=== PATIENT | female | born 1940 | race Caucasian/White ===

== ENCOUNTER 2020-04-14 13:01 | Observation (INO) | payer MEDICARE ==
[~2020-04-14] VITALS: Ht 160 cm; Wt 44.5 kg
[2020-04-14 01:00] VITALS: BP 190/70
[~2020-04-14 13:01] MED LIST: ACTIQ 400 MCG400 MCG; ADULT LOW DOSE81 MG PO; ANALGESIC325 MG PO; B-6 PO; CALCIUM 500+D1 EAC2; CARVEDILOL3.125 MG PO; CARVEDILOL6.25 MG PO; CEFTIN500 MG PO; CIPROFLOXACIN500 M3; COREG PO; DARVOCET-N 1001 EACH PO; DILANTIN100 MG; HYDROCODON-ACE1 EAC7; KEPPRA 500 MG500 M1; KEPPRA 500 MG500 M2 PO; KEPPRA 500 MG500 MG PO; LEVAQUIN 500 M500 MG PO; LEVEMIR SQ; LEVEMIR SUBQ; LEVOTHROID25 MCG OR; LEVOTHROID75 MCG PO; LEVOTHYROXINE0.05 MG PO; LEVOXYL; MULTIVITAMINS; NOVOLOG100 UNIT/1 SQ; PERCOCET 5-3251 EACH PO; PHENYTOIN SODI100 MG PO; PLAVIX 75 MG TA75 MG PO; PYRIDOXINE HCL100 MG PO; SIMVASTATIN20 MG PO; SIMVASTATIN40 MG PO; SYNTHROID25 MCG PO; TIROSINT75 MCG PO; VIMPAT100 MG; ZESTRIL2.5 MG PO; phenytoin PO
[2020-04-14 13:04] VITALS: BP 179/65
[2020-04-14] MEDS ORDERED: ASA81BEC PO (13:17)
[2020-04-14 13:20] LABS: URINE BILIRUBIN NEGATIVE (Negative); URINE BLOOD NEGATIVE (Negative); URINE CLARITY CLEAR; URINE COLOR YELLOW; URINE GLUCOSE-RANDOM TRACE (Negative); URINE KETONES NEGATIVE (Negative); URINE LEUKOCYTES-REFLEX NEGATIVE (Negative); URINE NITRITE-REFLEX NEGATIVE (Negative); URINE PROTEIN TRACE (Negative)
[2020-04-14 13:33] LABS: ABSOLUTE LYMPHOCYTES 0.9 thou/uL (0.8-5.3); ABSOLUTE MONOCYTES 0.4 thou/uL (0.0-1.2); ABSOLUTE NEUTROPHILS 3.5 thou/uL (1.6-8.1); BASOPHILS 0.6 %; EOSINOPHILS 0.8 %; HEMATOCRIT 40.8 % (37.0-47.0); HEMOGLOBIN 13.7 gm/dL (12.0-15.0); LYMPHOCYTES 19.4 %; MCH 30.9 pg (26.0-34.0); MCHC 33.5 g/dL (28.0-37.0); MCV 92.1 fL (80.0-100.0); MONOCYTES 7.9 %; MPV 7.7 fl. (7.2-11.1); NUCLEATED RBCS 0 /100WBC; PLATELET COUNT* 153 thou/uL (150-400); POLYS 71.3 %; RBC 4.43 mil/uL (4.20-5.00); RDW-CV 15.5 % (10.5-14.5); WBC 4.9 thou/uL (4.0-11.0)
[2020-04-14 13:53] LABS: ALBUMIN 3.3 g/dL (3.4-5.0); CALCIUM 8.6 mg/dL (8.5-10.1); CREATININE 0.8 mg/dL (0.6-1.3); TOTAL BILIRUBIN 0.4 mg/dL (<0.1-1.0); TOTAL PROTEIN 7.1 g/dL (6.4-8.2)
[2020-04-14 13:54] LABS: POTASSIUM 2.3 mmol/L (3.5-5.1)
[2020-04-14 13:55] LABS: APTT 29.3 Seconds (25.0-31.3); INR 1.1; PROTIME 11.6 Seconds (9.20-11.50)
--- NOTE | 2020-04-14 14:08 | NUR ---
Dr [facility], request evaluation for home situation vs placement needs. spoke with Dtr Laura Corcoran and Son Loni Diallo in person. Loni is POA. Report grandson 24 y/o lives with pt and takes care of her. Dtr states she can start coming over to moms home when grandson not there. Discussed criteria for Rehab and SNF placements which pt. Pt has not been in hospital last 60 or more days except [facility] on 04/11/20 for weakness. Was found to have UTI and was sent home with oral medication which dtr states pt has been taking. Discussed LTC and family stated knew the day was coming but have made no plans. Son Explained that patient has very little money and owns her home. They do not want to sell it to qualify for assistance-they have been told this before is what needs to occur for Medicaid. Son said LTC not option right now. Discussed [facility] RN, PT/OT option with family covering times grandson not at home. They agreed to this. Pt has not HH Hx and they stated not preference for any one company. Mya ARAGON Liz [phone] contacted. She is reviewing pt info and will let me know if can accept. She was also checking insurance as she was not familiar with it.
[2020-04-14 16:22] LABS: INFLUENZA A ANTIGEN Negative (Negative); INFLUENZA B ANTIGEN Negative (Negative)
[2020-04-14] MEDS ORDERED: HYDROCORTISONE10 MG PO (16:31)
[2020-04-14] MEDS ORDERED: DEPAKOTE ER250 MG PO (16:31)
--- NOTE | 2020-04-14 17:24 | EKG ---
[place] [address] ELECTROCARDIOGRAM REPORT Name: YOLI ACOSTA NOVEMBER Room: [address] M.R.#: [id number] Admission: 04/14/20 Attend Phys: De Henry, Discharge: Date of : 40 Date of Service: 04/14/20 1335 Report #: [id number] THIS REPORT FOR: //name// [facility] ED Test Date: 2020-04-14 Test Time: 13:35:15 Pat Name: YOLI ACOSTA Department: Room: [facility] Gender: F [employer] Supervisor: KEMI : 1940 Requested By: Pete Dunlap Order Number: [id number] MD: Aurelio Calvin Measurements Intervals [place] Rate: 58 P: 77 [place]: 170 QRS: 0 QRSD: 93 T: 144 QT: 439 QTc: 432 Interpretive Statements Sinus rhythm Left atrial enlargement Low voltage, extremity leads Anterior infarct, old, possible Compared to ECG 12/23/2015 21:21:46 Low QRS voltage now present Electronically Signed On 04-14-2020 17:24:25 [employer] by Aurelio Calvin [email or web address] <ELECTRONICALLY SIGNED> By: Aurelio Calvin MD, FACC 04/14/20 1724 1335 1335 Aurelio Calvin MD, FAC /EPI
[2020-04-14 18:12] VITALS: BP 152/81
[2020-04-14 19:37] VITALS: BP 152/81
[2020-04-14 20:20] VITALS: BP 160/61
[2020-04-14 23:30] VITALS: BP 194/69
[2020-04-15 04:00] VITALS: BP 180/70
[2020-04-15 05:20] LABS: CALCIUM 7.8 mg/dL (8.5-10.1); CREATININE 0.8 mg/dL (0.6-1.3); MAGNESIUM 1.3 mg/dL (1.8-2.4); POTASSIUM 3.1 mmol/L (3.5-5.1)
--- NOTE | 2020-04-15 07:03 | NUR ---
PT RECIEVED FROM ED IN ROOM 208. ALERT AND ORIENTED X4. DENIES PAIN AND SOB. CALL LIGHT WITHIN REACH AND BED IN LOW POSITION. HOURLY ROUNDING DONE FOR PT SAFETY.
[2020-04-15] MEDS ORDERED: B12INJ IM (09:08)
[2020-04-15] MEDS ORDERED: EASY TOUCH HYP1 EA10 SUBQ (09:08)
[2020-04-15] MEDS ORDERED: KLOR-CON 10 ER10 MEQ PO (09:12)
[2020-04-15] MEDS ORDERED: SUPER THERAVIT1 EACH PO (09:12)
[2020-04-15] MEDS ORDERED: MAGNESIUM250 M1 PO (09:12)
[2020-04-15 11:18] VITALS: BP 180/70
--- NOTE | 2020-04-15 11:20 | NUR ---
Pt discharging to home today, son in room. CM to discuss transport. Pt will dc with [facility]. CM to fax referral and orders.
[2020-04-15 11:30] VITALS: BP 157/49
[2020-04-15 12:03] VITALS: BP 180/70
--- NOTE | 2020-04-15 14:00 | NUR ---
PT CARE PROVIDED FROM 0700 UNTIL 1345 WHEN PT WAS DISCHARGED TO HOME. PT HAS REMAINED ALERT/ORIENTED X 4. CUEVA WITH PURPOSE. SKIN IS PINK, WARM AND DRY TO TOUCH. REGULAR NONLABORED RESPIRATIONS. NO C/O OR INDICATION OF PAIN OR DISTRESS. ABDOMEN SOFT TO TOUCH. PT IS ABLE TO AMBULATE WITH ASSIST TO BEDSIDE COMMODE. AT TIME OF DISMISSAL IV ACCESS AND GAS TESTER WAS PIPPA. REVIEWED DISMISSAL INSTRUCTIONS WITH PATIENT AND HER SON. BOTH VERBALIZE UNDERSTANDING. PT'S FAMILY WITH ASSIST WITH SCHEDULING FOLLOW UP APPOINTMENT WITH PATIENT PRIMARY CARE DOCTOR. PT ASSISTED WITH DRESSING, TRANSFER TO WHEELCHAIR AND TRANSPORTED TO FRONT EXIT AND ASSISTED TO FAMILY VEHICLE. STABLE AT TIME OF DISCHARGE. VITAL SIGNS HAVE BEEN STABLE 141/52 96% ON ROOM AIR 55 HEART RATE (SINUS) AND 16 PER MINUTE RESPIRATIONS.
== END 2020-04-15 13:47 | disposition home or self-care (01) ==
LOC: M.ERS 13:01 → M.2W 14:41 → M.TBA-ER 14:41 → M.2W 20:02
PROVIDERS: Family Medicine; Nurse Practitioner Family; ADMIT Internal Medicine; ATTEND Internal Medicine
DX: G92 Toxic encephalopathy (principal); N39.0 Urinary tract infection, site not specified; E03.9 Hypothyroidism, unspecified; E11.9 Type 2 diabetes mellitus without complications; R53.2 Functional quadriplegia; R54 Age-related physical debility; E44.0 Moderate protein-calorie malnutrition; I65.29 Occlusion and stenosis of unspecified carotid artery; E87.6 Hypokalemia; I10 Essential (primary) hypertension; E83.42 Hypomagnesemia; E27.40 Unspecified adrenocortical insufficiency; E53.8 Deficiency of other specified B group vitamins; G40.909 Epilepsy, unspecified, not intractable, without status epilepticus; F17.210 Nicotine dependence, cigarettes, uncomplicated; Z79.82 Long term (current) use of aspirin; Z79.4 Long term (current) use of insulin

== ENCOUNTER 2020-10-16 15:08 | Emergency (ER) | payer MEDICARE ==
[~2020-10-16] VITALS: Ht 167.6 cm; Wt 43.0 kg
[~2020-10-16 15:08] MED LIST changes: +ASA81BEC PO; +B12INJ IM; +DEPAKOTE ER250 MG PO; +EASY TOUCH HYP1 EA10 SUBQ; +HYDROCORTISONE10 MG PO; +KLOR-CON 10 ER10 MEQ PO; +MAGNESIUM250 M1 PO; +SUPER THERAVIT1 EACH PO
[2020-10-16 15:52] LABS: ABSOLUTE BASOPHILS 0.1 thou/uL (0.0-0.2); ABSOLUTE EOSINOPHILS 0.7 thou/uL (0.0-0.7); ABSOLUTE LYMPHOCYTES 2.2 thou/uL (0.8-5.3); ABSOLUTE MONOCYTES 0.8 thou/uL (0.0-1.2); ABSOLUTE NEUTROPHILS 4.4 thou/uL (1.6-8.1); BASOPHILS 0.9 %; EOSINOPHILS 8.2 %; HEMATOCRIT 40.8 % (37.0-47.0); HEMOGLOBIN 13.6 gm/dL (12.0-15.0); LYMPHOCYTES 27.3 %; MCH 30.6 pg (26.0-34.0); MCHC 33.3 g/dL (28.0-37.0); MCV 91.9 fL (80.0-100.0); MONOCYTES 10.3 %; MPV 8.1 fl. (7.2-11.1); NUCLEATED RBCS 0 /100WBC; PLATELET COUNT* 185 thou/uL (150-400); POLYS 53.3 %; RBC 4.45 mil/uL (4.20-5.00); RDW-CV 13.6 % (10.5-14.5); WBC 8.2 thou/uL (4.0-11.0)
[2020-10-16 16:01] LABS: CREATININE 0.7 mg/dL (0.6-1.3); POTASSIUM 4.5 mmol/L (3.5-5.1)
[2020-10-16 16:28] LABS: URINE BILIRUBIN NEGATIVE (Negative); URINE BLOOD NEGATIVE (Negative); URINE CLARITY CLEAR; URINE COLOR YELLOW; URINE GLUCOSE-RANDOM NEGATIVE (Negative); URINE KETONES NEGATIVE (Negative); URINE LEUKOCYTES NEGATIVE (Negative); URINE NITRITE POSITIVE (Negative); URINE PROTEIN NEGATIVE (Negative); URINE UROBILINOGEN 0.2 E.U./dl (0.2-1.0)
[2020-10-16 16:35] LABS: CASTS None Seen /LPF (None Seen); CRYSTALS None Seen /LPF (None Seen); SQUAMOUS 0-3 Few /LPF (0-3); URINE WBC 0-5 Rare /HPF (0-5)
[2020-10-16 16:36] LABS: BACTERIA >30 Many /HPF (None Seen); URINE RBC None Seen /HPF (0-2)
[2020-10-16] MEDS ORDERED: MACROBID 100 M100 M1 PO (17:17)
[2020-10-16 17:37] VITALS: BP 141/55
--- NOTE | 2020-10-18 15:18 | EKG ---
[place] [address] ELECTROCARDIOGRAM REPORT Name: YOLI ACOSTA 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: [facility] : 1940 Requested By: Lizandro Vasquez Order Number: [id number] MD: Derian Longoria Measurements Intervals [place] Rate: 57 P: 70 [place]: 182 QRS: 73 QRSD: 100 T: 94 QT: 482 QTc: 470 Interpretive Statements Sinus rhythm Left atrial enlargement Low voltage, extremity and precordial leads Anteroseptal infarct, old possible Compared to ECG 04/14/2020 13:35:15 No significant changes Electronically Signed On 10-18-2020 15:18:42 CDT by Derian Longoria [email or web address] <ELECTRONICALLY SIGNED> By: Derian Longoria MD, [facility] 10/18/20 1518 1536 1536 Derian Longoria MD, [facility] /EPI
== END 2020-10-16 17:38 | disposition home or self-care (01) ==
LOC: M.ERS 15:08
PROVIDERS: Emergency Medicine
DX: N39.0 Urinary tract infection, site not specified (principal); Z20.822 Contact with and (suspected) exposure to COVID-19; E11.649 Type 2 diabetes mellitus with hypoglycemia without coma; E03.9 Hypothyroidism, unspecified; Z90.89 Acquired absence of other organs; Z95.5 Presence of coronary angioplasty implant and graft

== ENCOUNTER 2020-11-14 19:20 | Emergency (ER) | payer MEDICARE ==
[~2020-11-14] VITALS: Ht 170.2 cm; Wt 43.6 kg
[~2020-11-14 19:20] MED LIST changes: +MACROBID 100 M100 M1 PO
[2020-11-14 19:56] LABS: ABSOLUTE BASOPHILS 0.1 thou/uL (0.0-0.2); ABSOLUTE EOSINOPHILS 0.3 thou/uL (0.0-0.7); ABSOLUTE MONOCYTES 1.6 thou/uL (0.0-1.2); EOSINOPHILS 3.1 %; HEMATOCRIT 33.8 % (37.0-47.0); HEMOGLOBIN 11.6 gm/dL (12.0-15.0); LYMPHOCYTES 33.5 %; MCH 31.8 pg (26.0-34.0); MCHC 34.4 g/dL (28.0-37.0); MCV 92.7 fL (80.0-100.0); MONOCYTES 17.6 %; MPV 8.1 fl. (7.2-11.1); NUCLEATED RBCS 0 /100WBC; PLATELET COUNT* 197 thou/uL (150-400); POLYS 44.8 %; RBC 3.65 mil/uL (4.20-5.00); RDW-CV 16.6 % (10.5-14.5)
[2020-11-14 20:05] LABS: ANION GAP 7 mmol/L (7-16); BUN 36 mg/dL (7-18); CALCIUM 8.7 mg/dL (8.5-10.1); CHLORIDE 99 mmol/L (98-107); CO2 29 mmol/L (21-32); CREATININE 0.6 mg/dL (0.6-1.3); GLUCOSE 60 mg/dL (70-99); POTASSIUM 4.6 mmol/L (3.5-5.1); SODIUM 135 mmol/L (136-145)
[2020-11-14 20:15] LABS: ALBUMIN 3.4 g/dL (3.4-5.0); ALKALINE PHOSPHATASE 92 U/L (46-116); MAGNESIUM 1.7 mg/dL (1.8-2.4); SGOT 15 U/L (15-37); TOTAL BILIRUBIN 0.9 mg/dL (<0.1-1.0); TOTAL PROTEIN 7.1 g/dL (6.4-8.2)
[2020-11-14 20:16] LABS: SGPT < 6 U/L (30-65)
[2020-11-14 20:32] LABS: BE 2.7 mmol/L (-2 to +3); PCO2 40.5 mmHg (35.0-45.0); PO2 69.7 mmHg (75.0-100.0); pH 7.442 (7.340-7.450)
[2020-11-14 22:14] LABS: URINE BILIRUBIN NEGATIVE (Negative); URINE BLOOD NEGATIVE (Negative); URINE CLARITY CLEAR; URINE COLOR YELLOW; URINE GLUCOSE-RANDOM NEGATIVE (Negative); URINE KETONES NEGATIVE (Negative); URINE LEUKOCYTES-REFLEX TRACE (Negative); URINE PROTEIN TRACE (Negative)
[2020-11-14 22:15] LABS: URINE NITRITE-REFLEX POSITIVE (Negative)
[2020-11-14 22:47] LABS: CASTS None Seen /LPF (None Seen); SQUAMOUS NONE SEEN /LPF (0-3)
[2020-11-14 22:48] LABS: BACTERIA-REFLEX >30 Many /HPF (None Seen); CRYSTALS None Seen /LPF (None Seen); URINE RBC None Seen /HPF (0-2)
[2020-11-14] MEDS ORDERED: BAQSIMI3 MG NASAL (23:26)
[2020-11-14 23:50] VITALS: BP 122/54
--- NOTE | 2020-11-15 13:54 | EKG ---
[place] [address] ELECTROCARDIOGRAM REPORT Name: YOLI ACOSTA MARJAN [id number] Admission: 11/14/20 Attend Phys: Discharge: 11/15/20 Date of : 40 Date of Service: 11/14/201938 Report #: [id number] THIS REPORT FOR: //name// [facility] ED Test Date: 2020-11-14 Test Time: 19:39:44 Pat Name: YOLI ACOSTA Department: Room: Gender: F Background Investigator: MARISELA : 1940 Requested By: Cata Myles Order Number: [id number] MD: Derian Longoria Measurements Intervals [place] Rate: 65 P: 72 [place]: 170 QRS: 22 QRSD: 76 T: 111 QT: 401 QTc: 417 Interpretive Statements Sinus rhythm Probable left atrial enlargement Low voltage, extremity leads Abnormal T, consider ischemia, lateral leads Compared to ECG 10/16/2020 15:36:47 T-wave abnormality now present Possible ischemia now present Myocardial infarct finding no longer present Electronically Signed On 11-15-2020 13:54:48 CDT by Derian Longoria [email or web address] <ELECTRONICALLY SIGNED> By: Derian Longoria MD, [facility] 11/15/20 1354 38 38 Derian Longoria MD, FAC /EPI
== END 2020-11-15 00:05 | disposition home or self-care (01) ==
LOC: M.ERS 19:20
PROVIDERS: Personal Emergency Response Attendant
DX: E11.649 Type 2 diabetes mellitus with hypoglycemia without coma (principal); Z20.822 Contact with and (suspected) exposure to COVID-19; N39.0 Urinary tract infection, site not specified; E03.9 Hypothyroidism, unspecified; Z90.89 Acquired absence of other organs; Z79.4 Long term (current) use of insulin

== ENCOUNTER 2020-11-15 14:20 | Inpatient (IN) | payer MEDICARE ==
[~2020-11-15] VITALS: Ht 152.4 cm; Wt 43.1 kg
[~2020-11-15 14:20] MED LIST changes: +BAQSIMI3 MG NASAL
[2020-11-15 14:23] VITALS: BP 145/46
[2020-11-15 14:42] LABS: ABSOLUTE EOSINOPHILS 0.2 thou/uL (0.0-0.7); ABSOLUTE LYMPHOCYTES 1.7 thou/uL (0.8-5.3); ABSOLUTE NEUTROPHILS 3.5 thou/uL (1.6-8.1); BASOPHILS 0.8 %; EOSINOPHILS 2.7 %; HEMATOCRIT 31.3 % (37.0-47.0); HEMOGLOBIN 10.7 gm/dL (12.0-15.0); LYMPHOCYTES 26.1 %; MCH 32.4 pg (26.0-34.0); MCHC 34.3 g/dL (28.0-37.0); MCV 94.6 fL (80.0-100.0); MONOCYTES 16.4 %; MPV 8.7 fl. (7.2-11.1); NUCLEATED RBCS 0 /100WBC; PLATELET COUNT* 177 thou/uL (150-400); RBC 3.31 mil/uL (4.20-5.00); RDW-CV 16.1 % (10.5-14.5); WBC 6.4 thou/uL (4.0-11.0)
[2020-11-15 14:59] LABS: CALCIUM 8.4 mg/dL (8.5-10.1); CREATININE 0.7 mg/dL (0.6-1.3); POTASSIUM 4.8 mmol/L (3.5-5.1)
[2020-11-15 15:03] LABS: URINE BILIRUBIN NEGATIVE (Negative); URINE BLOOD NEGATIVE (Negative); URINE COLOR YELLOW; URINE GLUCOSE-RANDOM 3+ (Negative); URINE KETONES NEGATIVE (Negative); URINE LEUKOCYTES TRACE (Negative); URINE NITRITE POSITIVE (Negative); URINE PROTEIN NEGATIVE (Negative); URINE SPECIFIC GRAVITY 1.015 (1.005-1.030); URINE UROBILINOGEN 0.2 E.U./dl (0.2-1.0)
[2020-11-15 15:04] LABS: URINE CLARITY HAZY
[2020-11-15 15:08] LABS: ALBUMIN 3.1 g/dL (3.4-5.0); TOTAL BILIRUBIN 0.9 mg/dL (<0.1-1.0); TOTAL PROTEIN 6.8 g/dL (6.4-8.2)
[2020-11-15 15:30] LABS: SQUAMOUS 0-3 Few /LPF (0-3)
[2020-11-15 15:31] LABS: BACTERIA >30 Many /HPF (None Seen); CASTS None Seen /LPF (None Seen); CRYSTALS None Seen /LPF (None Seen); MUCUS 0-3 Light strn/LPF (None Seen); URINE RBC None Seen /HPF (0-2)
--- NOTE | 2020-11-15 15:44 | EKG ---
[place] [address] ELECTROCARDIOGRAM REPORT Name: YOLI ACOSTA MARJAN Room: [place] [address] ADM IN .R.#: [id number] Admission: 11/15/20 Attend Phys: Shon Desir, Discharge: Date of : 40 Date of Service: 11/15/20 1446 Report #: [id number] THIS REPORT FOR: //name// [facility] ED Test Date: 2020-11-15 Test Time: 14:46:36 Pat Name: YOLI ACOSTA Department: Room: [facility] Gender: F Unit Aide Tech: MARISELA : 1940 Requested By: Sylvester Stover Order Number: [id number] MD: Derian Longoria Measurements Intervals [place] Rate: 70 P: 67 NE: 179 QRS: 11 QRSD: 71 T: 110 QT: 391 QTc: 422 Interpretive Statements Sinus rhythm Left atrial enlargement Low voltage, extremity leads Anteroseptal infarct, old Nonspecific T abnormalities, lateral leads Compared to ECG 11/14/2020 19:39:44 Myocardial infarct finding now present Possible ischemia no longer present T-wave abnormality still present Electronically Signed On 11-15-2020 15:44:41 CDT by Derian Longorai [email or web address] <ELECTRONICALLY SIGNED> By: Derian Longoria MD, [facility] 11/15/20 1544 1446 1446 Derian Longoria MD, [facility] /EPI
[2020-11-15 17:32] VITALS: BP 145/70
[2020-11-15 20:00] VITALS: BP 129/45
[2020-11-16 03:56] LABS: ABSOLUTE BASOPHILS 0.1 thou/uL (0.0-0.2); ABSOLUTE EOSINOPHILS 0.3 thou/uL (0.0-0.7); ABSOLUTE LYMPHOCYTES 2.8 thou/uL (0.8-5.3); ABSOLUTE MONOCYTES 1.5 thou/uL (0.0-1.2); ABSOLUTE NEUTROPHILS 3.8 thou/uL (1.6-8.1); BASOPHILS 1.1 %; EOSINOPHILS 3.6 %; HEMATOCRIT 32.4 % (37.0-47.0); HEMOGLOBIN 11.1 gm/dL (12.0-15.0); LYMPHOCYTES 32.8 %; MCH 31.9 pg (26.0-34.0); MCHC 34.4 g/dL (28.0-37.0); MONOCYTES 18.1 %; MPV 8.7 fl. (7.2-11.1); NUCLEATED RBCS 0 /100WBC; PLATELET COUNT* 223 thou/uL (150-400); POLYS 44.4 %; RBC 3.48 mil/uL (4.20-5.00); WBC 8.5 thou/uL (4.0-11.0)
[2020-11-16 03:59] LABS: CALCIUM 8.7 mg/dL (8.5-10.1); CREATININE 0.6 mg/dL (0.6-1.3)
[2020-11-16 04:16] LABS: POTASSIUM 3.7 mmol/L (3.5-5.1)
[2020-11-16 07:15] VITALS: BP 153/42
[2020-11-16 16:37] VITALS: BP 145/42
[2020-11-16 20:30] VITALS: BP 147/78
[2020-11-16 23:06] LABS: GLYCOHEMOGLOBIN (HGB A1C) 7.9 % (4.8-5.6)
[2020-11-16 23:18] VITALS: BP 141/47
[2020-11-17 04:44] LABS: CALCIUM 8.3 mg/dL (8.5-10.1); CREATININE 0.9 mg/dL (0.6-1.3); POTASSIUM 3.7 mmol/L (3.5-5.1)
[2020-11-17 04:53] LABS: HEMATOCRIT 28.9 % (37.0-47.0); HEMOGLOBIN 9.7 gm/dL (12.0-15.0); MCH 32.2 pg (26.0-34.0); MCHC 33.6 g/dL (28.0-37.0); MCV 95.7 fL (80.0-100.0); MPV 8.6 fl. (7.2-11.1); RBC 3.02 mil/uL (4.20-5.00); RDW-CV 15.9 % (10.5-14.5); WBC 8.4 thou/uL (4.0-11.0)
[2020-11-17 07:20] VITALS: BP 111/37
[2020-11-17 08:07] VITALS: BP 111/37
[2020-11-17 15:35] VITALS: BP 136/49
[2020-11-17 20:12] VITALS: BP 146/54
[2020-11-17 23:58] VITALS: BP 163/49
[2020-11-18 07:25] VITALS: BP 167/62
[2020-11-18 16:00] VITALS: BP 158/51
[2020-11-18 20:00] VITALS: BP 160/52
[2020-11-19 04:52] LABS: HEMATOCRIT 29.8 % (37.0-47.0); HEMOGLOBIN 10.3 gm/dL (12.0-15.0); MCH 32.2 pg (26.0-34.0); MCHC 34.6 g/dL (28.0-37.0); MPV 8.5 fl. (7.2-11.1); RBC 3.2 mil/uL (4.20-5.00); RDW-CV 15.8 % (10.5-14.5); WBC 5.3 thou/uL (4.0-11.0)
[2020-11-19 05:19] LABS: CALCIUM 8.2 mg/dL (8.5-10.1); CREATININE 0.5 mg/dL (0.6-1.3); POTASSIUM 3.6 mmol/L (3.5-5.1)
[2020-11-19 08:00] VITALS: BP 175/61
[2020-11-19 21:19] VITALS: BP 163/58
[2020-11-20 04:12] LABS: HEMATOCRIT 33.7 % (37.0-47.0); HEMOGLOBIN 11.5 gm/dL (12.0-15.0); MCHC 34.1 g/dL (28.0-37.0); MCV 93.8 fL (80.0-100.0); MPV 7.6 fl. (7.2-11.1); RBC 3.59 mil/uL (4.20-5.00); RDW-CV 15.7 % (10.5-14.5); WBC 5.3 thou/uL (4.0-11.0)
[2020-11-20 04:25] LABS: CALCIUM 8.5 mg/dL (8.5-10.1); CREATININE 0.6 mg/dL (0.6-1.3); POTASSIUM 3.6 mmol/L (3.5-5.1)
[2020-11-20 08:00] VITALS: BP 111/37; BP 167/61
[2020-11-20 12:17] VITALS: BP 111/37
[2020-11-20 12:29] VITALS: BP 111/37
== END 2020-11-20 14:05 | disposition hospice, home (50) | DRG 177 ==
LOC: M.ERS 14:20 → M.TBA-ER 15:33 → M.ORTHSURG 15:33
PROVIDERS: Emergency Medicine; Family Medicine; Internal Medicine; ADMIT Internal Medicine; ATTEND Internal Medicine
DX: J69.0 Pneumonitis due to inhalation of food and vomit (principal); R53.2 Functional quadriplegia; E43 Unspecified severe protein-calorie malnutrition; E11.00 Type 2 diabetes mellitus with hyperosmolarity without nonketotic hyperglycemic-hyperosmolar coma (NKHHC); Z68.1 Body mass index [BMI] 19.9 or less, adult; N30.00 Acute cystitis without hematuria; E87.1 Hypo-osmolality and hyponatremia; E11.65 Type 2 diabetes mellitus with hyperglycemia; R62.7 Adult failure to thrive; E03.9 Hypothyroidism, unspecified; D64.9 Anemia, unspecified; Z66 Do not resuscitate; Z20.822 Contact with and (suspected) exposure to COVID-19; Z51.5 Encounter for palliative care; Z79.82 Long term (current) use of aspirin; Z79.899 Other long term (current) drug therapy; Z79.4 Long term (current) use of insulin